=== PATIENT | female | born 2000 | race Caucasian/White ===

== ENCOUNTER 2021-12-28 23:34 | Emergency (ER) | payer OTHER ==
[2021-12-29] MEDS ORDERED: Metoclopramide HCl 10 MG/2 ML VIAL ONE (00:53)
[2021-12-29] MEDS ORDERED: Ondansetron PF 4 MG/2 ML Vial ONE (00:53)
[2021-12-29] MEDS ORDERED: Famotidine/PF 20 mg/2ml Vial ONE (00:53)
[2021-12-29 01:20] LABS: BHCG - Serum Negative (NEGATIVE); Pregs Control Background? CLEAR/WHITE (CLR/WHITE); Pregs Control Bar Appear? YES (CONTROL BAR)
== END 2021-12-29 02:05 | disposition home or self-care (01) ==
LOC: CSHERS 23:34
DX: R11.2 Nausea with vomiting, unspecified (principal); F41.9 Anxiety disorder, unspecified; J45.909 Unspecified asthma, uncomplicated; Z79.899 Other long term (current) drug therapy
CPT/HCPCS: 84703; 96374; 96375; J2405; J2765; S0028